=== PATIENT | female | born 1960 | race Asian ===

== ENCOUNTER 2021-01-05 13:15 | Outpatient (CLI) | payer OTHER ==
[2021-01-05 14:13] LABS: PLATELET COUNT 439 K/uL (152-353)
[2021-01-05 14:23] LABS: POTASSIUM 3.6 mmol/L (3.6-5.2)
== END 2021-01-05 19:50 | disposition home or self-care (01) ==
LOC: LAB 13:15
PROVIDERS: ATTEND Nurse Practitioner Family
DX: Z00.00 Encounter for general adult medical examination without abnormal findings (principal); Z79.899 Other long term (current) drug therapy; R53.83 Other fatigue; R53.81 Other malaise; I10 Essential (primary) hypertension; J45.909 Unspecified asthma, uncomplicated; E53.8 Deficiency of other specified B group vitamins; E55.9 Vitamin D deficiency, unspecified
CPT/HCPCS: 80053; 80061; 82306; 82607; 83036; 84439; 84443; 85007; 85027